=== PATIENT | male | born 1985 | race Caucasian/White ===

== ENCOUNTER 2017-08-29 09:30 | Day surgery (SDC) | payer OTHER ==
[2017-08-29 11:52] LABS: ADD MAN DIFF? NO
[2017-08-29 11:58] LABS: BASOPHILS % 0.4 % (0.0-2.0); EOSINOPHILS # 0.1 10^3/ul (0.0-0.5); EOSINOPHILS % 1.8 % (0.0-7.0); HEMATOCRIT 44.4 % (42.0-52.0); HEMOGLOBIN 14.8 g/dl (14.0-18.0); LYMPHOCYTES # 1.9 10^3/ul (0.8-2.9); LYMPHOCYTES % 24.9 % (15.0-51.0); MEAN CORPUSCULAR HEMOGLOBIN 29.2 pg (29.0-33.0); MEAN CORPUSCULAR HGB CONC 33.3 g/dl (32.0-37.0); MEAN CORPUSCULAR VOLUME 87.6 fl (82.0-101.0); MEAN PLATELET VOLUME 11.1 fl (7.4-10.4); MONOCYTE # 0.6 10^3/ul (0.3-0.9); MONOCYTES % 7.3 % (0.0-11.0); NEUTROPHILS % 65.1 % (39.0-77.0); PLATELET COUNT 180 10^3/UL (140-415); RED BLOOD COUNT 5.07 10^6/ul (4.70-6.10); RED CELL DISTRIBUTION WIDTH 12.6 % (11.5-14.5)
[2017-08-29 11:58] LABS: WHITE BLOOD COUNT 7.7 10^3/ul (4.8-10.8)
[2017-08-29] MEDS ORDERED: SOD CHLORIDE 0.9% 1,000 ML IV (12:00)
[2017-08-29] MEDS ORDERED: CEFAZOLIN 2 GM/50 ML (PMX) 50 ML IVPB (12:00)
[2017-08-29 12:17] LABS: INR 1.08; PROTIME 14.1 Sec (11.9-14.9); PT RATIO 1.1
[2017-08-29 12:18] LABS: PARTIAL THROMBOPLASTIN TIME 29.5 Sec (25.0-35.0)
[2017-08-29 12:28] LABS: ALANINE AMINOTRANSFERASE 28 IU/L (13-69); ALBUMIN 4.2 g/dl (3.3-4.9); ALKALINE PHOSPHATASE 79 IU/L (42-121); ANION GAP 11 (8-16); ASPARTATE AMINO TRANSFERASE 20 IU/L (15-46); BILIRUBIN,INDIRECT 0.4 mg/dl (0-1.1); BILIRUBIN,TOTAL 0.4 mg/dl (0.2-1.3); CARBON DIOXIDE 28 mmol/L (21-31); CHLORIDE 107 mmol/L (97-110); GLUCOSE 102 mg/dl (70-220)
[2017-08-29 12:33] LABS: BLOOD UREA NITROGEN 8 mg/dl (7-20); CALCIUM 9.2 mg/dl (8.4-10.2); CREATININE 0.82 mg/dl (0.61-1.24); POTASSIUM 4.1 mmol/L (3.5-5.1); SODIUM 142 mmol/L (135-144)
[2017-08-29] MEDS ORDERED: NEOSTIGMINE 3 MG/3 ML SYRINGE (14:39)
[2017-08-29] MEDS ORDERED: ROCURONIUM 50 MG INJ (14:39)
[2017-08-29] MEDS ORDERED: MIDAZOLAM 1 MG/ML 2 ML INJ (14:39)
[2017-08-29] MEDS ORDERED: CEFAZOLIN 1 GM INJ (14:39)
[2017-08-29] MEDS ORDERED: GLYCOPYRROLATE 0.4 MG INJ (14:39)
[2017-08-29] MEDS ORDERED: PROPOFOL 20 ML (14:39)
[2017-08-29] MEDS ORDERED: DEXAMETHASONE 4 MG/ML 1 ML INJ (14:40)
[2017-08-29] MEDS ORDERED: ONDANSETRON 4 MG INJ (14:40)
[2017-08-29] MEDS ORDERED: ROPIVACAINE 0.2% 20 ML VIAL (14:40)
[2017-08-29] MEDS ORDERED: POLYMYXIN B 500000 UNIT INJ (14:41)
[2017-08-29] MEDS ORDERED: SODIUM CL BACTERIOSTATIC 30 ML INJ (14:41)
[2017-08-29] MEDS ORDERED: hydrALAzine 20 MG INJ (14:54)
[2017-08-29] MEDS ORDERED: KETOROLAC 30 MG INJ ×2 (14:56→15:09)
[2017-08-29] MEDS ORDERED: OXYCODONE/ACETAMINOPHEN (5/325) TAB PO ×2 (15:00)
[2017-08-29] MEDS ORDERED: ALBUTEROL 0.083% (NEB) 2.5 MG/3 ML AMP HHN (15:00)
[2017-08-29] MEDS ORDERED: hydrALAzine 20 MG INJ IV (15:00)
[2017-08-29] MEDS ORDERED: IPRATROPIUM (NEB) 0.5 MG/2.5 ML AMP HHN (15:00)
[2017-08-29] MEDS ORDERED: DIPHENHYDRAMINE 50 MG INJ IV (15:00)
[2017-08-29] MEDS ORDERED: LABETALOL HCL 20MG INJ IV (15:00)
[2017-08-29] MEDS ORDERED: EPHEDrine SULFATE 50 MG/5 ML SYG IV (15:00)
[2017-08-29] MEDS ORDERED: MEPERIDINE 25 MG INJ IV (15:00)
[2017-08-29] MEDS ORDERED: FENTAnyl 50 MCG/ML VIAL IV ×3 (15:00)
[2017-08-29] MEDS ORDERED: TRIMETHOBENZAMIDE 100 MG/ML VIAL IM (15:00)
[2017-08-29] MEDS ORDERED: MIDAZOLAM 1 MG/ML 2 ML INJ IV (15:00)
[2017-08-29] MEDS ORDERED: HYDROmorphONE 1 MG/5 ML IV SYRINGE IV (15:00)
[2017-08-29] MEDS ORDERED: LABETALOL HCL 20MG INJ (15:15)
[2017-08-29] MEDS: POLYMYXIN/BACITRACIN 1L IRRIG (15:24)
[2017-08-29] MEDS: HYDROmorphONE 1 MG/5 ML IV SYRINGE IV ×2 (15:58→16:05)
[2017-08-29] MEDS: HYDROCODONE/APAP (5/325) TAB PO (16:16)
[2017-08-29] MEDS: ONDANSETRON 4 MG INJ IV (16:43)
== END 2017-08-29 17:25 | disposition home or self-care (01) ==
LOC: SDS 09:30
DX: K40.30 Unilateral inguinal hernia, with obstruction, without gangrene, not specified as recurrent (principal)
CPT/HCPCS: 49507; 80053; 85025; 85610; 85730

== ENCOUNTER 2017-09-01 16:33 | Emergency (ER) | payer OTHER | END 2017-09-01 19:46 | disposition home or self-care (01) | LOC: FTE 16:33 | DX: N50.89 Other specified disorders of the male genital organs (principal); R40.2412 Glasgow coma scale score 13-15, at arrival to emergency department | CPT/HCPCS: 76870; 99284-25 ==